=== PATIENT | female | born 1985 | race Caucasian/White ===

== ENCOUNTER 2023-12-05 16:18 | Inpatient (IN) | payer OTHER ==
[~2023-12-05] VITALS: Ht 152.4 cm; Wt 63.0 kg
[~2023-12-05 16:18] MED LIST: PROGESTERONE100 M1; ZOFRAN8 MG
[2023-12-05 16:48] VITALS: BP 100/63
[2023-12-05] MEDS ORDERED: PRENATAL TABLE1 EAC1 PO (17:38)
[2023-12-05] MEDS ORDERED: HEPARIN 1010 UNIT/1 IV (17:38)
[2023-12-05] MEDS ORDERED: MAGNESIUM SULFATE IN WATER 500 ML IV SCH (18:45)
[2023-12-05 19:09] LABS: HEMATOCRIT 34.3 % (36.0-45.00); HEMOGLOBIN 12.1 g/dL (12.0-15.00); MEAN CELL VOLUME 94.8 fL (80.00-100.00); MEAN CORPUSCULAR HEMOGLOBIN 33.4 pg (27.00-32.0); MEAN CORPUSCULAR HGB CONC 35.2 g/dl (32.0-36.0); PLATELET COUNT 319 K/uL (150-450); RED BLOOD COUNT 3.62 M/uL (4.00-6.00); RED CELL DISTRIBUTION WIDTH 12.3 % (11.5-14.5)
[2023-12-05 19:25] LABS: INR < 0.93; PARTIAL THROMBOPLASTIN TIME 24.4 SECONDS (22.0-34.0); PROTHROMBIN TIME 9.9 SECONDS (9.0-11.5)
[2023-12-05 19:33] LABS: ALBUMIN 3.2 gm/dL (3.4-5.0); BILIRUBIN TOTAL 0.28 mg/dL (0.3-1.2); CALCIUM 9.2 mg/dL (8.5-10.1); CREATININE SERUM 0.55 mg/dL (0.55-1.02); GFR 123.05; GLOBULINA 3.7 G/DL (2.4-3.5); POTASSIUM 3.94 mEq/L (3.5-5.1); TOTAL PROTEIN 6.9 gm/dL (6.4-8.2)
[2023-12-05 19:49] VITALS: BP 101/63
[2023-12-05] MEDS ORDERED: CEFOXITIN SODIUM 2,000 MG VIAL IV SCH (21:00)
[2023-12-05 23:41] VITALS: BP 90/57
[2023-12-06] VITALS (7 sets, daily range): BP systolic 91–102; BP diastolic 55–77; O2SAT 98–99
[2023-12-06] MEDS ORDERED: ACETAMINOPHEN 500 MG GEL..CAP PO PRN (02:30)
[2023-12-06] MEDS ORDERED: POVIDONE-IODINE 118 ML BOTT TOP ONE (10:14)
[2023-12-06] MEDS ORDERED: MAGNESIUM SULFATE IN WATER 0.04 GM/ML IV.SOLN IV ONE (11:08)
[2023-12-06 11:55] LABS: HEMATOCRIT 30.3 % (36.0-45.00); HEMOGLOBIN 10.8 g/dL (12.0-15.00); MEAN CELL VOLUME 95.1 fL (80.00-100.00); MEAN CORPUSCULAR HEMOGLOBIN 33.7 pg (27.00-32.0); MEAN CORPUSCULAR HGB CONC 35.5 g/dl (32.0-36.0); PLATELET COUNT 272 K/uL (150-450); RED BLOOD COUNT 3.19 M/uL (4.00-6.00); RED CELL DISTRIBUTION WIDTH 12.4 % (11.5-14.5)
[2023-12-06] MEDS ORDERED: CEFOXITIN SODIUM 2,000 MG VIAL IV ONE (12:32)
[2023-12-06] MEDS ORDERED: RINGERS SOLUTION,LACTATED 1,000 ML IV SCH (12:45)
[2023-12-06] MEDS ORDERED: MORPHINE SULFATE 4 MG/ML CARTRIDGE IV NR (14:46)
[2023-12-07 03:46] VITALS: BP 95/60
[2023-12-07 06:09] VITALS: BP 90/62; O2SAT 97
[2023-12-07] MEDS ORDERED: ENOXAPARIN SODIUM 40 MG/0.4 ML SYRINGE SUBCUTANEO SCH (09:00)
[2023-12-07] MEDS ORDERED: NIFEDIPINE 30 MG TAB.SA.OSM PO SCH (09:00)
[2023-12-07 11:12] VITALS: BP 90/60
[2023-12-07 15:36] VITALS: BP 91/56
[2023-12-07 19:45] VITALS: BP 92/56
[2023-12-07] MEDS ORDERED: MAGNESIUM SULFATE IN WATER 500 ML IV SCH (20:45)
[2023-12-07] MEDS ORDERED: MAGNESIUM SULFATE IN WATER 100 ML IV SCH (20:45)
[2023-12-07 23:30] VITALS: BP 90/56
[2023-12-08 03:25] VITALS: BP 90/51
[2023-12-08 07:10] VITALS: BP 93/61
[2023-12-08] MEDS ORDERED: DOCUSATE SODIUM 100MG CAP PO SCH (09:00)
[2023-12-08] MEDS ORDERED: AZITHROMYCIN 500 MG TABLET PO SCH (12:00)
[2023-12-08 12:16] VITALS: BP 96/64
[2023-12-08 15:29] VITALS: BP 92/54
[2023-12-08] MEDS ORDERED: AZITHROMYCIN 500 MG TABLET PO NR (15:30)
[2023-12-08 19:33] VITALS: BP 93/58
[2023-12-08 23:18] VITALS: BP 96/60
[2023-12-09 03:14] VITALS: BP 96/62
[2023-12-09 07:00] VITALS: BP 92/60
[2023-12-09] MEDS ORDERED: AZITHROMYCIN 500 MG TABLET PO SCH ×2 (09:00→12:00)
[2023-12-09] MEDS ORDERED: NIFEDIPINE 30 MG TAB.SA.OSM PO NR (09:50)
[2023-12-09 15:59] VITALS: BP 95/55
[2023-12-09] MEDS ORDERED: NIFEDIPINE 30 MG TAB.SA.OSM PO SCH (21:00)
[2023-12-09 23:27] VITALS: BP 91/55
[2023-12-10 08:05] VITALS: BP 95/55
[2023-12-10 16:00] VITALS: BP 92/55
[2023-12-10 23:39] VITALS: BP 92/60
[2023-12-11 08:00] VITALS: BP 95/60
[2023-12-11] MEDS ORDERED: Procardia Xl 30MG TA PO (13:04)
== END 2023-12-11 13:38 | disposition home or self-care (01) | DRG 819 ==
LOC: LDR 16:18 → OB/GYN 12-09 09:51
PROVIDERS: ADMIT Obstetrics & Gynecology Maternal & Fetal Medicine; ATTEND Obstetrics & Gynecology Maternal & Fetal Medicine
PROC: 4A1HXCZ Monitoring of Products of Conception, Cardiac Rate, External Approach (ICD-10-PCS; 2023-12-05)
PROC: 0UVC7ZZ Restriction of Cervix, Via Natural or Artificial Opening (ICD-10-PCS; principal; 2023-12-06 14:15)
PROC: BU4CZZZ Ultrasonography of Uterus and Ovaries (ICD-10-PCS; 2023-12-07)
DX: O34.32 Maternal care for cervical incompetence, second trimester (principal); Z3A.18 18 weeks gestation of pregnancy; Z20.822 Contact with and (suspected) exposure to COVID-19

== ENCOUNTER 2023-12-29 13:11 | Inpatient (IN) | payer OTHER ==
[~2023-12-29] VITALS: Ht 152.4 cm; Wt 60.8 kg
[2023-12-29 11:39] VITALS: BP 107/63; O2SAT 99
[~2023-12-29 13:11] MED LIST changes: +HEPARIN 1010 UNIT/1 IV; +PRENATAL TABLE1 EAC1 PO; +Procardia Xl 30MG TA PO
[2023-12-29] MEDS ORDERED: RINGERS SOLUTION,LACTATED 1,000 ML IV SCH (13:15)
[2023-12-29 13:45] LABS: HEMATOCRIT 32.1 % (36.0-45.00); HEMOGLOBIN 11.3 g/dL (12.0-15.00); MEAN CELL VOLUME 94.3 fL (80.00-100.00); MEAN CORPUSCULAR HEMOGLOBIN 33.2 pg (27.00-32.0); MEAN CORPUSCULAR HGB CONC 35.2 g/dl (32.0-36.0); PLATELET COUNT 322 K/uL (150-450); RED BLOOD COUNT 3.41 M/uL (4.00-6.00); RED CELL DISTRIBUTION WIDTH 12.2 % (11.5-14.5)
[2023-12-29 14:00] LABS: INR 0.95; PARTIAL THROMBOPLASTIN TIME 23.3 SECONDS (22.0-34.0); PROTHROMBIN TIME 10.4 SECONDS (9.0-11.5)
[2023-12-29 14:05] LABS: ALBUMIN 2.8 gm/dL (3.4-5.0); BILIRUBIN TOTAL 0.28 mg/dL (0.3-1.2); CALCIUM 9.3 mg/dL (8.5-10.1); CREATININE SERUM 0.5 mg/dL (0.55-1.02); GFR 136.65; GLOBULINA 3.9 G/DL (2.4-3.5); POTASSIUM 4.32 mEq/L (3.5-5.1); TOTAL PROTEIN 6.7 gm/dL (6.4-8.2)
[2023-12-29] MEDS ORDERED: COLACE100 MG PO (14:28)
[2023-12-29] MEDS ORDERED: LOVENOX40 MG/0.4 SUBCUTANEO (14:28)
[2023-12-29] MEDS ORDERED: MAGNESIUM SULFATE IN WATER 500 ML IV SCH (15:45)
[2023-12-29] MEDS ORDERED: MAGNESIUM SULFATE IN WATER 100 ML IV NR (15:45)
[2023-12-29] MEDS ORDERED: ENOXAPARIN SODIUM 40 MG/0.4 ML SYRINGE SUBCUTANEO SCH (18:46)
[2023-12-29 19:30] VITALS: BP 95/59
[2023-12-29 23:16] VITALS: BP 96/61
[2023-12-30] VITALS (7 sets, daily range): BP systolic 90–101; BP diastolic 55–66; O2SAT 98
[2023-12-31 02:45] VITALS: BP 93/59
[2023-12-31 07:42] VITALS: BP 93/58
[2023-12-31 12:20] VITALS: BP 107/70
[2023-12-31 15:30] VITALS: BP 105/65
[2023-12-31 20:04] VITALS: BP 96/60
[2023-12-31 23:41] VITALS: BP 106/56; O2SAT 99
[2024-01-01 03:34] VITALS: BP 109/62; O2SAT 98
[2024-01-01] MEDS ORDERED: 0.9 % SODIUM CHLORIDE 1,000 ML IV SCH (05:00)
[2024-01-01] MEDS ORDERED: DOCUSATE SODIUM 100MG CAP PO SCH (06:07)
[2024-01-01] MEDS ORDERED: NIFEDIPINE 30 MG TAB.SA.OSM PO SCH ×3 (06:07→09:00)
[2024-01-01 07:20] VITALS: BP 98/61
[2024-01-01 10:00] VITALS: BP 100/60
[2024-01-01 17:57] VITALS: BP 100/60
[2024-01-01] MEDS ORDERED: NIFEDIPINE 60 MG TAB.SA.OSM PO SCH (21:00)
[2024-01-02 00:41] VITALS: BP 90/54
[2024-01-02] MEDS ORDERED: NIFEDIPINE ER60 MG PO (08:18)
[2024-01-02 08:37] VITALS: BP 84/55
== END 2024-01-02 09:33 | disposition home or self-care (01) | DRG 833 ==
LOC: LDR 13:11 → OB/GYN 01-01 08:58
PROVIDERS: ADMIT Obstetrics & Gynecology Maternal & Fetal Medicine; ATTEND Obstetrics & Gynecology Maternal & Fetal Medicine
PROC: 4A1HXCZ Monitoring of Products of Conception, Cardiac Rate, External Approach (ICD-10-PCS; principal; 2023-12-29)
PROC: BY4CZZZ Ultrasonography of Second Trimester, Single Fetus (ICD-10-PCS; 2023-12-29)
PROC: BU4CZZZ Ultrasonography of Uterus and Ovaries (ICD-10-PCS; 2023-12-29)
DX: O34.32 Maternal care for cervical incompetence, second trimester (principal); Z3A.21 21 weeks gestation of pregnancy; Z20.822 Contact with and (suspected) exposure to COVID-19

== ENCOUNTER 2024-02-06 13:17 | Outpatient (CLI) | payer OTHER ==
[~2024-02-06 13:17] MED LIST changes: +COLACE100 MG PO; +LOVENOX40 MG/0.4 SUBCUTANEO; +NIFEDIPINE ER60 MG PO
== END 2024-02-06 14:37 | disposition home or self-care (01) ==
LOC: NST 13:17
PROVIDERS: ATTEND Obstetrics & Gynecology Maternal & Fetal Medicine
DX: Z34.82 Encounter for supervision of other normal pregnancy, second trimester (principal)